=== PATIENT | female | born 1940 | race Caucasian/White ===

== ENCOUNTER 2016-02-29 19:24 | Emergency (ER) | payer OTHER ==
[~2016-02-29] VITALS: Ht 162.6 cm; Wt 72.6 kg
--- NOTE | ~2016-02-29 | EKG ---
[address] [place] [address] ELECTROCARDIOGRAM REPORT Name: CLINT OSORIO Room [id number] Admission: 02/29/16 Attend Phys: Discharge: 02/29/16 Date of : 38 Report #: [id number] THIS REPORT FOR: //name// 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 : 1940 Requested By: Flaquito Cazares Order Number: [id number] MD: Tex Perez Measurements Intervals [place] Rate: 64 P: 50 SC: 196 QRS: 27 QRSD: 91 T: 53 QT: 422 QTc: 436 Interpretive Statements Sinus rhythm Abnormal R-wave progression, early transition LVH by voltage No previous ECG available for comparison Electronically Signed On 03-02-2016 8:39:48 SENIOR PRINCIPAL ARCHITECT by Tex Perez [email or web address] <ELECTRONICALLY SIGNED> By: Tex Perez MD, [facility] 03/02/16 0839 [id number] 51 Tex Perez MD, FACC /EPI
[2016-02-29 20:20] LABS: ABSOLUTE NEUTROPHILS 9.4 thou/uL (1.4-8.2); BASOPHILS 0.7 % (0.0-2.0); EOSINOPHILS 0.7 % (0.0-3.0); HEMATOCRIT 39.4 % (37.0-47.0); HEMOGLOBIN 13.1 gm/dL (12.0-15.0); LYMPHOCYTES 18.7 % (24.0-44.0); MCH 27.9 pg (26.0-34.0); MCHC 33.2 % (28.0-37.0); MCV 84.1 fL (80.0-100.0); MONOCYTES 4.7 % (1.0-8.0); PLATELET COUNT 290 thou/uL (150-400); POLYS 75.2 % (36.0-66.0); RBC 4.69 mil/uL (4.20-5.00); RDW 14.7 % (10.5-14.5); WBC 12.5 thou/uL (4.0-11.0)
[2016-02-29 20:27] LABS: ANION GAP 8 mmol/L (7-16); BUN 9 mg/dL (7-18); CALCIUM 9.2 mg/dL (8.5-10.1); CHLORIDE 105 mmol/L (98-107); CO2 31 mmol/L (21-32); CREATININE 0.8 mg/dL (0.6-1.3); GLUCOSE 127 mg/dL (70-99); MANUAL DIFF NO; POTASSIUM 3.4 mmol/L (3.5-5.1); SODIUM 144 mmol/L (136-145)
[2016-02-29] MEDS ORDERED: NITROGLYCERIN0.4 MG SUBLING (20:27)
[2016-02-29] MEDS ORDERED: LIPITOR10 MG PO (20:27)
[2016-02-29] MEDS ORDERED: LISINOPRIL10 MG PO (20:27)
[2016-02-29] MEDS ORDERED: GLUCOPHAGE XR500 MG PO (20:27)
[2016-02-29] MEDS ORDERED: MOBIC15 MG PO (20:27)
[2016-02-29] MEDS ORDERED: NABUMETONE 500500 M1 PO (20:28)
[2016-02-29] MEDS ORDERED: TRAMADOL 50 MG50 MG PO (20:29)
[2016-02-29] MEDS ORDERED: RANITIDINE HCL300 MG PO (20:29)
[2016-02-29] MEDS ORDERED: AMLODIPINE BESY10 MG PO (20:29)
[2016-02-29 20:37] LABS: ALBUMIN 3.4 g/dL (3.4-5.0); ALKALINE PHOSPHATASE 131 U/L (46-116); SGOT 17 U/L (15-37); SGPT 23 U/L (30-65); TOTAL BILIRUBIN 0.8 mg/dL (<0.1-1.0); TOTAL PROTEIN 7.7 g/dL (6.4-8.2); TROPONIN-I < 0.04 ng/mL (<0.04-0.07)
[2016-02-29] MEDS ORDERED: ZOFRAN ODT4 MG DISSOLVE (22:17)
[2016-02-29] MEDS ORDERED: CIPROFLOXACIN500 M1 PO (22:17)
[2016-02-29] MEDS ORDERED: FLAGYL500 MG PO (22:17)
[2016-02-29] MEDS ORDERED: NORCO 5-325 TA1 EACH PO (22:17)
[2016-02-29 23:43] VITALS: BP 167/95
== END 2016-02-29 23:45 | disposition home or self-care (01) ==
LOC: ER 19:24
PROVIDERS: Emergency Medicine
DX: K57.92 Diverticulitis of intestine, part unspecified, without perforation or abscess without bleeding (principal); R11.2 Nausea with vomiting, unspecified; I10 Essential (primary) hypertension; E11.9 Type 2 diabetes mellitus without complications; Z90.49 Acquired absence of other specified parts of digestive tract